=== PATIENT | male | born 1990 | race Caucasian/White ===

== ENCOUNTER 2019-01-05 17:35 | Emergency (ER) | payer SELFPAY ==
[~2019-01-05] VITALS: Ht 177.8 cm; Wt 114.4 kg
[2019-01-05] MEDS ORDERED: ONDANSETRON PF 4 MG/2 ML VIAL. IV ONE (18:15)
[2019-01-05] MEDS ORDERED: MORPHINE SULFATE 10 MG/ML VIAL. IV ONE (18:15)
[2019-01-05] MEDS ORDERED: IV NORMAL SALINE 1000ML BAG 1,000 ML IV ONE (18:15)
[2019-01-05] MEDS ORDERED: NEOMY/BACITR/POLYMYXIN OINT PACKET. TP ONE (18:15)
[2019-01-05 18:30] VITALS: BP 137/90
[2019-01-05] MEDS ORDERED: HYDR-3164 PO (19:15)
[2019-01-05] MEDS ORDERED: NEOM28.32 TP (19:15)
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
== END 2019-01-05 19:43 | disposition home or self-care (01) ==
LOC: ER 17:35
DX: T23.211A Burn of second degree of right thumb (nail), initial encounter (principal); T22.232A Burn of second degree of left upper arm, initial encounter; T22.111A Burn of first degree of right forearm, initial encounter; T31.0 Burns involving less than 10% of body surface; F17.200 Nicotine dependence, unspecified, uncomplicated; F10.20 Alcohol dependence, uncomplicated; Y90.9 Presence of alcohol in blood, level not specified; X08.8XXA Exposure to other specified smoke, fire and flames, initial encounter; Y93.89 Activity, other specified; Y92.89 Other specified places as the place of occurrence of the external cause; Y99.8 Other external cause status
CPT/HCPCS: 16020; 96374; 96375; 99284; J2270; J2405; J7030